=== PATIENT | female | born 1970 | race Caucasian/White ===

== ENCOUNTER → 2017-08-30 08:28 | Outpatient (CLI) | payer BC, SELFPAY ==
--- NOTE | 2017-08-30 08:30 | HPBI_ITS ---
MAMMOGRAPHY - BILATERAL SCREENING REASON FOR EXAM: Female, 47 years old. Routine annual screening examination. PERTINENT HISTORY: Grandmother with breast cancer. Prior right stereotactic breast biopsy. TECHNIQUE: Digital bilateral breast rafaela (3D mammographic acquisition) in the CC and MLO projections. 2-D mediolateral oblique (MLO) and craniocaudad (CC) views of both breasts were obtained. CAD: Full Field Digital Mammography with Computer Added Detection was performed. COMPARISON: Comparison is made with prior study dated April 30, 2016 and April 12, 2015. FINDINGS: Breast Composition: The breasts are heterogeneously dense, which may obscure small masses. Stable partially calcified nodule in the deep mid lateral portion of the right breast suggest a calcified fibroadenoma. Stable benign-appearing bilateral axillary lymph nodes. There are no dominant masses or suspicious calcifications. Stable benign-appearing left retroareolar calcifications. No other significant abnormalities are identified. There has been no significant change since the prior study. HPBI/SCREENING MAMM (CAD), BILAT IMPRESSION: Stable bilateral screening mammogram. Yearly follow-up mammogram recommended. (A) ASSESSMENT CATEGORY: BIRADS Category 2: Benign. A letter regarding these results will be sent to the patient by the facility within 30 days. Approximately 10% of breast cancers are not detected by mammography. A normal mammogram should not delay biopsy of a clinically suspicious abnormality. [id number] Electronically Signed: Cristofer Magdaleno MD at 9:49 EST Tel [phone], Service support ,
== END ==
PROVIDERS: Visit Provider Obstetrics & Gynecology
DX: Z12.31 Encounter for screening mammogram for malignant neoplasm of breast (principal)
CPT/HCPCS: 77063; 77067

== ENCOUNTER → 2018-08-11 16:22 | Outpatient (CLI) | payer BC, SELFPAY ==
[2018-08-17 16:44] LABS: HPV Reflexed? NOT INDICATED
--- OUTSIDE RECORDS SUMMARY | 2018-10-16 11:49 | XMS RPT_ITS ---
:1970 Author Organization [facility] Care Team Providers Name Role Phone SELF, SELF Referring Unavailable MAURICIO PARRY Attending Unavailable ANDRE HUANG Attending Unavailable ANDRE HUANG Referring Unavailable Hortencia Wayne Attending Unavailable Hortencia Wayne Referring Unavailable Hortencia Wayne Attending Unavailable Hortencia Wayne Referring Unavailable COLIN ROBERTS Primary Care Unavailable PROBLEMS PROBLEMS DATE TYPE CONDITION / CODE ATTENDING STATUS SOURCE 08/11/2018 Unknown Z12.4 - Hortencia Wayne Active [facility] Encounter for Community screening for Hospital malignant Repository neoplasm of cervix / Z12.4(ICD-10) 01/17/2018 Admitting Ear Pain / MAURICIO PARRY Active [facility] 659546() [facility] ([place] Repository 01/17/2018 Admitting Neck Pain / MAURICIO PARRY Active [facility] 017412() [place] 01/17/2018 Admitting Sinus Congestion MAURICIO PARRY Active [employer] [facility] / 859() [place] Repository PROCEDURES PROCEDURES No Procedure Records FoundRESULTS RESULTS PAP I-G W/RFX HRHPV Collected: 08/11/2018 Status: F Source: [facility] 11:00 AM [facility] HOSPITAL REPOSITORY Order Comment: CYTOLOGY INFORMATION: - CLINICAL INFORMATION: - DATE LMP/MENOPAUSE: 07/17/18 LMP - COLLECTION VIAL: Thin Prep Vial - CONTACT LENS ASSISTANT SOURCE: CERVICAL/ENDOCERVICAL - COLLECTION TECHNIQUE: BRUSH/SPATULA Specimen Comment: [id number] Specimen Comment: Source.............Cervix;Endocervix Specimen Comment: LMP / Prev Treat...[id number] Specimen Comment: No. of containers..01 ThinPrep Vial TYPE CODE TESTS RESULT OUT OF RANGE REFERENCE UNITS LAB L7400.0800 . Normal DIAGN Comment Result Comment: NEGATIVE FOR INTRAEPITHELIAL LESION OR MALIGNANCY. FUNGAL ORGANISMS MORPHOLOGICALLY CONSISTENT WITH BRYANNA SPECIES ARE PRESENT. LAB L7400.0900 . Normal ADEQ Comment Result Comment: Satisfactory for evaluation. No endocervical component is identified. LAB L7400.1400 . Normal PERFORM Comment Result Comment: Juliet Orozco, Rack Carrier LAB L7400.2575 . Normal TEST METHOD Comment Result Comment: This liquid based ThinPrep(R) pap test was screened with the use of an image guided system. LAB L7400.2600 . Normal . COMM LAB L7400.2700 . Normal PAPSMR Comment Result Comment: The Pap smear is a screening test designed to aid in the detection of premalignant and malignant conditions of the uterine cervix. It is not a diagnostic procedure and should not be used as the sole means of detecting cervical cancer. Both false-positive and false-negative reports do occur. LAB L7400.2800 . Normal HPV RFLX Comment Result Comment: The HPV DNA reflex criteria were not met with this specimen result therefore, no HPV testing was performed. Performed at: [facility] [id number] Shredder Operator: Felicia Arroyo MD, Phone: [phone] Performed By: #### L7400.0350 #### [facility] (refer to report for specific site) refer to report for address and phone number CBC Collected: 03/31/2018 Status: F Source: [facility] 9:07 AM [facility] ([place]) REPOSITORY TYPE CODE TESTS RESULT OUT OF REFERENCE UNITS RANGE LAB WBC 3.6-11.0 /cmm WBC COUNT 6.8 LAB RBC 4.0-5.4 /cmm RBC COUNT 4.48 LAB HGB 12.0-16.0 G/DL HEMOGLOBIN 14.3 LAB HCT 36.0-48.0 % HEMATOCRIT 41.4 LAB MCV 80.0-100.0 FL MCV 92.3 LAB MCH 26.0-35.0 PG MCH 31.9 LAB MCHC 27.0-37.0 G/DL MCHC 34.6 LAB RDW 11.5-14.5 % RDW 13.5 LAB PLTC 130.0-400.0 /cmm PLATELET COUNT 195 LAB MPV 7.4-11.0 FL Low MPV 7.2 LAB DTYPE % DTYPE AUTO DIFF LAB NEUT 37.0-75.0 % NEUTROPHIL 71.0 LAB LYMP 20.0-55.0 % LYMPHOCYTE 20.8 LAB AOMONO 0.0-10.0 % MONOCYTE 6.8 LAB EOS 0.0-11.0 % EOSINOPHIL 1.0 LAB BASO 0.0-2.0 % BASOPHIL 0.4 LAB ANC 1.0-7.0 x10 ABSOLUTE NEUTROPHIL COUNT 4.8 LAB ALYM X10 ABSOLUTE LYMPHOCYTE 1.40 LAB AMONO X10 ABSOLUTE MONOCYTE 0.5 LAB AEO X10 ABSOLUTE EOS 0.10 LAB ABAS X10 ABSOLUTE BAS 0.0 Performed By: #### ACBC, CMPF, FX, TSH2 #### Testing performed at [facility] [address] [place] [address] CMP FASTING Collected: 03/31/2018 Status: F Source: [facility] 9:07 AM [place] ([place] REPOSITORY TYPE CODE TESTS RESULT OUT OF REFERENCE UNITS RANGE LAB GLF 70-100 MG/DL GLUCOSE 87 FASTING Result Comment: NORMAL <100 mg/dL PREDIABETES 101-126 mg/dL DIABETES 126 mg/dL or higher LAB BUN 7-20 MG/DL BLOOD UREA 15 NITROGEN LAB CRET 0.52-1.04 MG/DL CREATININE SERUM 0.8 LAB NA 136-145 MMOL/L SODIUM 139 LAB K 3.5-5.1 MMOL/L POTASSIUM 4.2 LAB CL 98-107 MMOL/L CHLORIDE 106 LAB CA 8.4-10.2 MG/DL CALCIUM 9.5 LAB TP 6.3-8.2 GM/DL TOTAL PROTEIN 8.1 LAB ALB 3.5-5.0 G/dl ALBUMIN 4.5 LAB TBIL 0.2-1.2 MG/DL BILIRUBIN TOTAL 0.9 LAB AST 15-41 IU/L AST 23 LAB ALKP 38-126 IU/L ALK 57 PHOSPHATASE LAB CO2 22-30 MMOL/L CO2 26 LAB AG 1.3-2.2 RATIO A:G RATIO 1.3 LAB ALT 14-54 IU/L ALT 23 LAB GFR ml/min/1.73s q.m EST. GFR,Non >60 LAB GFRB ml/min/1.73s q.m EST. GFR, >60 [facility] GFRCOM GFR Information Average GFR for 40-49 years old = 99. Result Comment: Chronic Kidney disease, GFR = <60. Kidney failure, GFR = <15. The GFR estimate is not adjusted for extreme body surface area or acute process, nor has it been validated for women or ethnic groups other than and . Performed By: #### ACBC, CMPF, FX, TSH2 #### Testing performed at [address] [address] FAX REQUEST Collected: 03/31/2018 Status: F Source: [facility] 9:07 AM [place] REPOSITORY TYPE CODE TESTS RESULT OUT OF REFERENCE UNITS RANGE LAB FAXTO FAX TO FAX TO ANDRE HUANG Performed By: #### ACBC, CMPF, FX, TSH2 #### Testing performed at [address] [address] TSH Collected: 03/31/2018 Status: F Source: [facility] 9:07 AM [facility] [place] REPOSITORY TYPE CODE TESTS RESULT OUT OF RANGE REFERENCE UNITS LAB TSH2 0.45-5.33 uIU/ML TSH 3.907 Performed By: #### ACBC, CMPF, FX, TSH2 #### Testing performed at [address] [address] SCREENING MAMM (CAD), Observed: 08/30/2017 Status: F Source: [facility] BILAT 8:30 AM [facility] REPOSITORY [facility] Imaging Services [address] [place] [address] SCREENING MAMM (CAD), BILAT MR#: [id number] Acct: [id number] Name: TERRI ELLISON Rep #: [id number] : 1970 F 47 From: Cristofer Magdaleno MD PCP: OUT OF TOWN DOCTOR Status: REG CLI Study: SCREENING MAMM (CAD), BILAT Date of Exam: 08/30/17 Exam# [id number] Ordering Dr: Hortencia Wayne MD MAMMOGRAPHY - BILATERAL SCREENING REASON FOR EXAM: Female, 47 years old. Routine annual screening examination. PERTINENT HISTORY: Grandmother with breast cancer. Prior right stereotactic breast biopsy. TECHNIQUE: Digital bilateral breast rafaela (3D mammographic acquisition) in the CC and MLO projections. 2-D mediolateral oblique (MLO) and craniocaudad (CC) views of both breasts were obtained. CAD: Full Field Digital Mammography with Computer Added Detection was performed. COMPARISON: Comparison is made with prior study dated April 30, 2016 and April 12, 2015. FINDINGS: Breast Composition: The breasts are heterogeneously dense, which may obscure small masses. Stable partially calcified nodule in the deep mid lateral portion of the right breast suggest a calcified fibroadenoma. Stable benign-appearing bilateral axillary lymph nodes. There are no dominant masses or suspicious calcifications. Stable benign-appearing left retroareolar calcifications. No other significant abnormalities are identified. There has been no significant change since the prior study. HPBI/SCREENING MAMM (CAD), BILAT IMPRESSION: Stable bilateral screening mammogram. Yearly follow-up mammogram recommended. (A) ASSESSMENT CATEGORY: BIRADS Category 2: Benign. A letter regarding these results will be sent to the patient by the facility within 30 days. Approximately 10% of breast cancers are not detected by mammography. A normal mammogram should not delay biopsy of a clinically suspicious abnormality. [id number] Electronically Signed: Cristofer Magdaleno MD at 9:49 EST Tel [phone], Service support , CC: Hortencia Wayne MD; OUT OF TOWN DOCTOR Supervisor [employer]: Signed ALLERGIES ALLERGIES No Allergies Records FoundENCOUNTERS ENCOUNTERS ADMIT/DISCHARGE ACCOUNT NUMBER ADMITTING ENCOUNTER LOCATION SOURCE CLASS 08/11/2018 [id number] Ambulatory [facility] ding:[facility] Repository 03/31/2018 [id number] Ambulatory [facility] ([place] 01/17/2018 [id number] Ambulatory Buildin [facility] ([place] 08/30/2017 [id number] Ambulatory [facility] ding:BI Repository PAYERS PAYERS ENCOUNTER GUARANTOR PAYER SUBSCRIBER SOURCE 08/11/2018 TERRI [id number] Primary TERRI MABRYDOB: [place] [facility] Insurance[id number] Number: [facility] [address]Tlc: 419 [id number] Repository [phone] () ve Date:[id number] [address] [place] [address]: 08/11/2018 Secondary NOT GIVENUNK [place] Insurance:SELF PAY [facility] Number: Effective Repository Date:2018-08-11 08/30/2017 Terri [id number] Primary Terri MabryDOB: Flavio [id number] Number: [facility] [address]Mbs: [id number] Repository ve Date:[id number] () [id number] [place] [address]WZ: 08/30/2017 Secondary NOT GIVENUNK [place] Insurance:SELF PAY [facility] Number: Effective Repository Date:2017-08-04
== END ==
PROVIDERS: Referring Provider Obstetrics & Gynecology; Visit Provider Obstetrics & Gynecology
DX: Z12.4 Encounter for screening for malignant neoplasm of cervix (principal)
CPT/HCPCS: 88175; G0145

== ENCOUNTER → 2018-10-06 17:30 | Outpatient (CLI) | payer BC, SELFPAY ==
--- NOTE | 2018-10-06 16:42 | BI_ITS ---
MAMMOGRAPHY - BILATERAL SCREENING REASON FOR EXAM: Female, 48 years old. Routine annual screening examination. PERTINENT HISTORY: Grandmother with breast cancer. Prior right stereotactic breast biopsy. TECHNIQUE: Digital bilateral breast rafaela (3D mammographic acquisition) in the CC and MLO projections. 2-D mediolateral oblique (MLO) and craniocaudad (CC) views of both breasts were obtained. CAD: Full Field Digital Mammography with Computer Added Detection was performed. COMPARISON: Comparison is made with prior study dated August 30, 2017 and April 30, 2016. FINDINGS: Breast Composition: The breasts are extremely dense, which lowers the sensitivity of mammography. There are no dominant masses or suspicious calcifications. Stable calcified nodular density in the deep inferior slightly lateral aspect of the right breast suggestive of a calcified fibroadenoma. Stable benign-appearing bilateral axillary lymph nodes. No other significant abnormalities are identified. There has been no significant change since the prior study. BI/SCREENING MAMM (CAD), BILAT IMPRESSION: Stable bilateral screening mammogram. Yearly follow-up mammogram recommended. (A) ASSESSMENT CATEGORY: BIRADS Category 2: Benign. A letter regarding these results will be sent to the patient by the facility within 30 days. Approximately 10% of breast cancers are not detected by mammography. A normal mammogram should not delay biopsy of a clinically suspicious abnormality. [id number] Electronically Signed: Cristofer Magdaleno, at 9:22 EDT , Service support ,
== END ==
PROVIDERS: Visit Provider Obstetrics & Gynecology
DX: Z12.31 Encounter for screening mammogram for malignant neoplasm of breast (principal)
CPT/HCPCS: 77063; 77067

== ENCOUNTER → 2020-01-02 10:31 | Outpatient (CLI) | payer BC, SELFPAY ==
--- NOTE | 2020-01-02 10:34 | BI_ITS ---
MAMMOGRAPHY - BILATERAL SCREENING REASON FOR EXAM: Female, 49 years old. Routine annual screening examination. PERTINENT HISTORY: Grandmother with breast cancer. Prior right stereotactic breast biopsy. TECHNIQUE: Digital bilateral breast franky (3D mammographic acquisition) in the CC and MLO projections. 2-D mediolateral oblique (MLO) and craniocaudad (CC) views of both breasts were obtained. CAD: Full Field Digital Mammography with Computer Added Detection was performed. COMPARISON: Comparison is made with prior study dated October 06, 2018 and August 30, 2017. FINDINGS: Breast Composition: The breasts are extremely dense, which lowers the sensitivity of mammography. There are no dominant masses or suspicious calcifications. Stable densely calcified nodule in the deep inferior slightly lateral portion of the right breast. Stable appearance of the bilateral axillary lymph nodes. No other significant abnormalities are identified. There has been no significant change since the prior study. BI/SCREEN MAMM (CAD) W/FRANKY BILAT IMPRESSION: Stable bilateral screening mammogram. Yearly follow-up mammogram recommended. (A) ASSESSMENT CATEGORY: BIRADS Category 2: Benign. A letter regarding these results will be sent to the patient by the facility within 30 days. Approximately 10% of breast cancers are not detected by mammography. A normal mammogram should not delay biopsy of a clinically suspicious abnormality. [id number] Electronically Signed: Cristofer Magdaleno, at 12:10 EDT , Service support ,
== END ==
PROVIDERS: Referring Provider Obstetrics & Gynecology; Visit Provider Obstetrics & Gynecology
DX: N63.12 Unspecified lump in the right breast, upper inner quadrant (principal); Z12.31 Encounter for screening mammogram for malignant neoplasm of breast
CPT/HCPCS: 77063; 77067

== ENCOUNTER → 2021-04-18 07:31 | Outpatient (CLI) | payer BC, SELFPAY ==
--- NOTE | 2021-04-18 08:09 | BI_ITS ---
MAMMOGRAPHY - BILATERAL SCREENING REASON FOR EXAM: Female, 50 years old. Routine annual screening examination. PERTINENT HISTORY: Grandmother with breast cancer. TECHNIQUE: Digital bilateral breast franky (3D mammographic acquisition) in the CC and MLO projections. 2-D mediolateral oblique (MLO) and craniocaudad (CC) views of both breasts were obtained. CAD: Full Field Digital Mammography with Computer Added Detection was performed. COMPARISON: Comparison is made with prior study dated 01/02/2020 and 10/06/2018. FINDINGS: Breast Composition: The breasts are extremely dense, which lowers the sensitivity of mammography. There are no dominant masses or suspicious calcifications. Stable calcified nodule in the deep inferior lateral aspect of the right breast. Stable benign-appearing bilateral axillary. No other significant abnormalities are identified. There has been no significant change since the prior study. BI/SCRN MAMM (CAD)W/FRANKY BILAT IMPRESSION: Stable bilateral screening mammogram. Yearly follow-up mammogram recommended. (A) ASSESSMENT CATEGORY: BIRADS Category 2: Benign. A letter regarding these results will be sent to the patient by the facility within 30 days. Approximately 10% of breast cancers are not detected by mammography. A normal mammogram should not delay biopsy of a clinically suspicious abnormality. [id number] Electronically Signed: Cristofer Magdaleno MD at 9:38 EDT , Service support ,
== END ==
PROVIDERS: Referring Provider Obstetrics & Gynecology; Visit Provider Obstetrics & Gynecology
DX: Z12.31 Encounter for screening mammogram for malignant neoplasm of breast (principal)
CPT/HCPCS: 77063; 77067

== ENCOUNTER → 2022-03-31 | Outpatient (CLI) | payer BC, SELFPAY ==
[2022-04-07 14:04] LABS: HPV APTIMA, High Risk Negative (Negative)
== END | disposition home or self-care (01) ==
LOC: LABSPEC 09:15
PROVIDERS: Visit Provider Obstetrics & Gynecology
DX: Z12.4 Encounter for screening for malignant neoplasm of cervix (principal)
CPT/HCPCS: 87624; 88175; G0145

== ENCOUNTER → 2022-05-01 | Outpatient (CLI) | payer BC, SELFPAY ==
--- NOTE | 2022-05-01 07:38 | BI_ITS ---
MAMMOGRAPHY - BILATERAL SCREENING REASON FOR EXAM: Female, 51 years old. Routine annual screening examination. PERTINENT HISTORY: Grandmother with breast cancer. Prior right stereotactic breast biopsy. TECHNIQUE: Digital bilateral breast franky (3D mammographic acquisition) in the CC and MLO projections. 2-D mediolateral oblique (MLO) and craniocaudad (CC) views of both breasts were obtained. CAD: Full Field Digital Mammography with Computer Added Detection was performed. COMPARISON: Comparison is made with prior study dated 04/18/2021 and 01/02/2020. FINDINGS: Breast Composition: The breasts are extremely dense, which lowers the sensitivity of mammography. There are no dominant masses or suspicious calcifications. Stable calcified nodule in the deep inferior lateral aspect of the right breast. Stable small benign-appearing bilateral axillary lymph nodes. No other significant abnormalities are identified. There has been no significant change since the prior study. BI/SCRN MAMM (CAD)W/FRANKY BILAT IMPRESSION: Stable bilateral screening mammogram. Yearly follow-up mammogram recommended. (A) ASSESSMENT CATEGORY: BIRADS Category 2: Benign. A letter regarding these results will be sent to the patient by the facility within 30 days. Approximately 10% of breast cancers are not detected by mammography. A normal mammogram should not delay biopsy of a clinically suspicious abnormality. [id number] Electronically Signed: Cristofer Magdaleno MD at 9:23 EDT ,
== END | disposition home or self-care (01) ==
PROVIDERS: Visit Provider Obstetrics & Gynecology
DX: Z12.31 Encounter for screening mammogram for malignant neoplasm of breast (principal); Z80.3 Family history of malignant neoplasm of breast
CPT/HCPCS: 77063; 77067